=== PATIENT | male | born 1970 | race Caucasian/White ===

== ENCOUNTER 2019-12-23 13:05 | Inpatient (IN) | payer OTHER ==
[~2019-12-23] VITALS: Ht 180.3 cm; Wt 109.1 kg
[2019-12-23 13:21] VITALS: BP 109/81; Ht 180.3 cm; Wt 109.1 kg
--- NOTE | 2019-12-23 19:45 | NUR ---
REPORT RECEIVED, WILL CONT POC. PT ALERT AND ORIENTED, UP IN BED WATCHING TV. NO S/S OF DISTRESS OBSERVED. RESPIRATIONS EVEN AND UNLABORED ON ROOM AIR. PT DENIES NEEDS AT THIS TIME. CALL LIGHT IN REACH. BED LOCKED AND LOWERED. WILL CONTINUE TO MONITOR.
[2019-12-23 20:00] VITALS: BP 103/69
[2019-12-24 04:00] VITALS: BP 102/62
[2019-12-24 05:18] LABS: BASOPHILS 0 % (0-2); EOSINOPHILS 0.3 % (0-7); HEMOGLOBIN 16.6 g/dL (13.5-17.5); IMMATURE GRANULOCYTES 0.3 % (0-5); LYMPHOCYTES 34.2 % (15-50); MCH 29.2 pg (26.0-34.0); MCHC 33.9 g/dL (31.0-37.0); MCV 86.3 fL (80.0-100.0); MEAN PLATELET VOLUME 10.2 fL (7.4-10.4); MONOCYTES 7.6 % (2-11); NEUTROPHILS 57.6 % (40-80); PLATELET COUNT 122 10x3/uL (130-400); RBC 5.68 10x6/uL (4.20-6.10); RDW 13.1 % (11.5-14.5); WBC 3.8 10x3/uL (4.8-10.8)
[2019-12-24 05:53] LABS: ANION GAP 14.2 mmol/L (8-16); BILIRUBIN - TOTAL 0.51 mg/dL (0.2-1.3); CALCIUM 7.4 mg/dL (8.5-10.1); CARBON DIOXIDE 21.6 mmol/L (21.0-32.0); CREATININE - SERUM 1.3 mg/dL (0.6-1.3); POTASSIUM - SERUM 3.8 mmol/L (3.5-5.1); PROTEIN - SERUM 6.8 g/dL (6.4-8.2)
--- NOTE | 2019-12-24 08:29 | NUR ---
PT ALERT AND ORIENTED X4 UPON ENTERING, UP RIGHT IN BED EATING BREAKFAST. ADMINISTERED MEDICATION, NO DIFFICULTIES. DENIES ANY NEEDS. BED IN LOWEST POSITION, BED RAILS X2, CALL LIGHT WITHIN REACH. WILL CONTINUE TO MONITOR.
--- NOTE | 2019-12-24 08:59 | HP ---
PATIENT: PEGGY CARPENTER MEDICAL RECORD: [id number] ACCOUNT: [id number] LOCATION:D.MS [id number] : 72 ADMISSION DATE: 12/23/19 PCP: RADHA JULIEN MD HISTORY AND PHYSICAL EXAMINATION CHIEF COMPLAINT: Fatigue. HISTORY OF PRESENT ILLNESS: This is a 49-year-old white male who was working out in his yard about 6 days ago and "got overheated." Since then, he has just felt very weak and fatigued. He states he has lost 14 pounds in 6 days. He is in the process of getting a gastric sleeve placed for obesity and his stomach as "shrunk." He is having problems taking fluids and supplements. He gets very nauseated when he tries to take in fluids and electrolytes. His BMs are okay. He states his urine is "really yellow." In the office today, his blood pressure was 86/68. He did not look well. LABORATORY DATA: His hemoglobin was up to 19.0, hematocrit 53.1, and platelets down to 159,000. His BUN was elevated at 25 and creatinine 1.32. This was compared to labs done in our office 4 months ago when his hemoglobin was 16.9, hematocrit 50.0, BUN was 14, and creatinine 1.15 with his low blood pressure, feeling weak for days, unintentional weight loss and elevated creatinine, he is assigned to observation for IV fluids. PAST MEDICAL HISTORY: He has hyperlipidemia, seasonal allergies, morbid obesity, sleep apnea, but admits to not really using his machine lot now. PAST SURGICAL HISTORY: Umbilical hernia repair times 2. MEDICATIONS: Lopid 600 mg twice a day, pravastatin 40 mg once a day, and omeprazole 20 mg once a day. DRUG ALLERGIES: None known. FAMILY HISTORY: Father is alive. He has a history of coronary artery disease, lung cancer, hypertension, and an NV. The patient's mother of cancer. The patient's brother has had an NV. HABITS: No tobacco, alcohol, or drugs. REVIEW OF SYSTEMS: GENERAL: He reports 14 pound weight loss in the last week or so. HEENT: He has seasonal allergies, but nothing going on right now. RESPIRATORY: No history of emphysema or asthma. CARDIAC: No personal history of coronary artery disease. GASTROINTESTINAL: He has occasional heartburn. GENITOURINARY: No significant problems there. MUSCULOSKELETAL: No significant problems there. NEUROLOGIC: No seizures or migraine. PSYCHIATRIC: Denies depression or melancholia. PHYSICAL EXAMINATION: VITAL SIGNS: Blood pressure in my office was 86/68. In the hospital here, his blood pressure was 109/81 and temperature 99.3. GENERAL: He appears mildly ill, fatigued. SKIN: Warm and dry. HISTORY AND PHYSICAL [id number] PEGGY CARPENTER HEENT: Grossly within normal limits. NECK: Supple. No JVD or bruit. HEART: Regular rate and rhythm. LUNGS: Clear. ABDOMEN: Soft, nontender. No guarding, no rebound, no mass. EXTREMITIES: No edema. LABORATORY: Again, CBC and basic metabolic panel from my office is mentioned above. IMPRESSION: 1. Hypotension. 2. Acute dehydration. 3. Acute kidney injury. PLAN: We will admit for IV fluids. Continue his usual home medications. Recheck labs in the morning. Other tests and procedures as warranted. TRANSINT:[id number] Voice Confirmation ID: [id number] DOCUMENT ID: [id number] MARYLIN JIN MD at 0859 CC: [id number] DICTATION DATE: 12/24/19 0008 MANAGER CLIENT: 12/24/19 0400 ADM IN [facility] [address] [id number]
[2019-12-24 09:01] VITALS: BP 90/57
[2019-12-24 13:36] VITALS: BP 106/71
--- NOTE | 2019-12-24 16:40 | NUR ---
ADMINISTERED MEDICATION, NO DIFFICULTIESL. PRN TYLENOL FOR SLIGHT FEVER. RESTING COMFORTABLY IN BED. DENIES ANY NEEDS. WILL CONTINUE TO MONITOR.
[2019-12-24 18:41] VITALS: BP 94/64
[2019-12-24 22:20] VITALS: BP 106/63
[2019-12-25 05:39] LABS: BASOPHILS 0 % (0-2); EOSINOPHILS 0.3 % (0-7); HEMATOCRIT 43.5 % (42.0-54.0); HEMOGLOBIN 14.7 g/dL (13.5-17.5); IMMATURE GRANULOCYTES 0.3 % (0-5); LYMPHOCYTES 36.4 % (15-50); MCH 29.3 pg (26.0-34.0); MCHC 33.8 g/dL (31.0-37.0); MCV 86.8 fL (80.0-100.0); MEAN PLATELET VOLUME 10.9 fL (7.4-10.4); MONOCYTES 6.4 % (2-11); NEUTROPHILS 56.6 % (40-80); PLATELET COUNT 119 10x3/uL (130-400); RBC 5.01 10x6/uL (4.20-6.10); RDW 13.1 % (11.5-14.5); WBC 3.3 10x3/uL (4.8-10.8)
[2019-12-25 06:07] LABS: ANION GAP 13.1 mmol/L (8-16); CALCIUM 7.5 mg/dL (8.5-10.1); CARBON DIOXIDE 23.5 mmol/L (21.0-32.0); CREATININE - SERUM 1.2 mg/dL (0.6-1.3); POTASSIUM - SERUM 3.6 mmol/L (3.5-5.1)
[2019-12-25 08:00] VITALS: BP 100/59
[2019-12-25 12:00] VITALS: BP 98/57
[2019-12-25 13:16] LABS: BILIRUBIN NEGATIVE (NEGATIVE); GLUCOSE NEGATIVE (NEGATIVE); KETONE NEGATIVE (NEGATIVE); NITRITE NEGATIVE (NEGATIVE); UROBILINOGEN NORMAL (NORMAL)
[2019-12-25 15:32] VITALS: BP 90/55
--- NOTE | 2019-12-25 16:06 | NUR ---
PT STATES HE FEELS HE HAS A FEVER. T 102.1 TYLENOL GIVEN FOR RELIEF. WILL RECHECK IN 30 MIN
--- NOTE | 2019-12-25 16:30 | NUR ---
TEMP 100.1 STATES HE FEELS BETTER
--- NOTE | 2019-12-25 19:40 | NUR ---
LYING IN BED. DENIES PAIN. RESP EVEN AND NONLABORED. NO DISTRESS. NS @ 75 MLHR INFUSING IN LT HAND. AMBULATORY. REPORTS DIARRHEA THIS AM. ALERT AND ORIENTED X4. SR ELEVATED X2. CL IN REACH.
[2019-12-25 20:00] VITALS: BP 114/73
[2019-12-26 04:00] VITALS: BP 94/61
--- NOTE | 2019-12-26 04:43 | NUR ---
HAS RESTED WELL TONIGHT. NO DISTRESS. CL IN REACH.
[2019-12-26 05:42] LABS: BASOPHILS 0.3 % (0-2); EOSINOPHILS 0.9 % (0-7); HEMATOCRIT 41.3 % (42.0-54.0); IMMATURE GRANULOCYTES 0.3 % (0-5); LYMPHOCYTES 35.2 % (15-50); MCH 29.4 pg (26.0-34.0); MCHC 33.9 g/dL (31.0-37.0); MCV 86.8 fL (80.0-100.0); MEAN PLATELET VOLUME 10.6 fL (7.4-10.4); MONOCYTES 9.4 % (2-11); NEUTROPHILS 53.9 % (40-80); PLATELET COUNT 114 10x3/uL (130-400); RBC 4.76 10x6/uL (4.20-6.10); RDW 13.1 % (11.5-14.5); WBC 3.2 10x3/uL (4.8-10.8)
[2019-12-26 05:47] LABS: CALC OSMOLALITY 275 mosm/kg (275-300); CALCIUM 7.7 mg/dL (8.5-10.1); CARBON DIOXIDE 24.3 mmol/L (21.0-32.0); CHLORIDE - SERUM 108 mmol/L (98-107); CREATININE - SERUM 1.1 mg/dL (0.6-1.3); GLUCOSE 87 mg/dL (74-106); POTASSIUM - SERUM 3.6 mmol/L (3.5-5.1); SODIUM 139 mmol/L (136-145); eGFR NON AFRICAN AMERICAN 76 mL/min (90-120)
[2019-12-26 05:48] LABS: UREA NITROGEN 9 mg/dL (7-18)
--- NOTE | 2019-12-26 07:26 | NUR ---
ALERT AND ORIENTED. LUNGS CLEAR BILATERALLY. HEART SOUNDS S1 AND S2 HEARD IN ALL FALCON. BOWEL SOUNDS ACTIVE X 4. IV TO LEFT HAND PATENT WITHOUT REDNESS. DENIES NEEDS. SITTING IN CHAIR AT BEDSIDE. CALL GRAY AND PERSONAL ITEMS IN REACH. WILL CONTINUE TO MONITOR.
[2019-12-26 09:26] VITALS: BP 92/63
--- NOTE | 2019-12-26 12:38 | NUR ---
RESTING IN BED. DENIES NEEDS. WILL CONTINUE TO MONITOR.
[2019-12-26 12:56] VITALS: BP 112/73
--- NOTE | 2019-12-26 14:36 | NUR ---
DISCHARGE EDUCATION PROVIDED BOTH WRITTEN AND VERBAL. VERBALIZED UNDERSTANDING. DENIES FURTHER QUESTIONS. IV REMOVED FROM LEFT HAND WITH TIP INTACT. PATIENT DC HOME WITH ALL BELONGINGS.
--- NOTE | 2019-12-26 15:01 | MORECARE ---
CASE MANAGEMENT DISCHARGE SUMMARY PATIENT: PEGGY CARPENTER UNIT: [id number] ADM DATE: 12/24/19 AGE: 49 : 72 SEX: M ROOM/BED: D.2236 AUTHOR: ELICIA UMANA PHYSICIAN: REFERRING PHYSICIAN: MARYLIN JIN MD DATE OF SERVICE: 12/26/19 Discharge Plan Patient Name: PEGGY CARPENTER Facility: [facility]:[place] : 1970 Planned Disposition: Home Anticipated Discharge Date: Discharge Date: Expected LOS: Initial Reviewer: [email or web address] Initial Review Date: 12/23/2019 Generated: 12/26/19 4:00 pm Comments DCP- Discharge Planning Updated by [email or web address]: Vera Palencia on 12/26/19 1:[address] Patient Name: PEGGY CARPENTER Admission Status: Elective Accout number: [id number] Admission Date: 12-24-2019 : 1970 Admission Diagnosis:HYPOTENSION, UNSPECIFIED Attending: MARYLIN JIN Current LOS: 2 Anticipated DC Date: Planned Disposition: Home Primary Insurance: [employer] POS Discharge Planning Comments: CM met with patient to complete initial dc planning assessment. CM educated patient on the CM role and verbal consent given by patient to complete assessment. Patient lives at home with family. Patient is independent. At discharge patient plans to return home and feels this is a safe discharge. CM discussed availability of home health, rehab services, and medical equipment. Patient denied known discharge needs at this time. CM will continue to follow and will assist as needed. Tie Knitter Helper: Vera Palencia Patient Name: PEGGY CARPENTER Page [id number] at 1501 All edits/amendments must be made on the electronic document DICTATION DATE: 12/26/19 1500 TOP SPOTTER: ALICE 12/26/19 1500 RPT#: [id number] DC DATE: STATUS: ADM IN [facility] [address] [place] [address] END OF REPORT
--- NOTE | 2019-12-29 08:37 | MORECARE ---
CASE MANAGEMENT DISCHARGE SUMMARY PATIENT: PEGGY CARPENTER UNIT: [id number] ADM DATE: 12/24/19 AGE: 49 : 72 SEX: M ROOM/BED: D.2236 AUTHOR: ELICIA UMANA PHYSICIAN: REFERRING PHYSICIAN: MARYLIN JIN MD DATE OF SERVICE: 12/29/19 Discharge Plan Patient Name: PEGGY CARPENTER Facility: [facility]:[place] : 1970 Planned Disposition: Home Anticipated Discharge Date: Discharge Date: 12/26/2019 Expected LOS: Initial Reviewer: [email or web address] Initial Review Date: 12/23/2019 Generated: 12/29/19 9:37 am Comments DCP- Discharge Planning Updated by [id number]: Vera Palencia on 12/26/19 1:[address] Patient Name: PEGGY CARPENTER Admission Status: Elective Accout number: [id number] Admission Date: 12-24-2019 : 1970 Admission Diagnosis:HYPOTENSION, UNSPECIFIED Attending: MARYLIN JIN Current LOS: 2 Anticipated DC Date: Planned Disposition: Home Primary Insurance: [email or web address] POS Discharge Planning Comments: CM met with patient to complete initial dc planning assessment. CM educated patient on the CM role and verbal consent given by patient to complete assessment. Patient lives at home with family. Patient is independent. At discharge patient plans to return home and feels this is a safe discharge. CM discussed availability of home health, rehab services, and medical equipment. Patient denied known discharge needs at this time. CM will continue to follow and will assist as needed. Manager Parking: Vera Burdick DP export: 12/26/19 2:01 p Patient Name: PEGGY CARPENTER Page [phone] at 0837 All edits/amendments must be made on the electronic document DICTATION DATE: 12/29/1937 MOBILE DEVICE DEVELOPER: ALICE 12/29/1937 RPT#: [id number] DC DATE:12/26/19 STATUS: DIS IN [address] [place] [address] END OF REPORT
[2019-12-29 14:09] LABS: EHRLICHIA CHAFF IGG Negative (Neg:<1:64); EHRLICHIA CHAFF IGM Negative (Neg:<1:20); HGE IGG TITER Negative (Neg:<1:64); HGE IGM TITER Negative (Neg:<1:20)
[2019-12-30 16:09] LABS: F. TULARENSIS - IGG Negative (Negative); F. TULARENSIS - IGM Negative (Negative)
== END 2019-12-26 15:21 | disposition home or self-care (01) | DRG 682 ==
LOC: D.MS 13:05 → EDSEX 13:07 → D.MS 13:07 → OBSVTIME 13:07 → D.MS 12-24 17:03
PROVIDERS: Family Medicine; ADMIT Family Medicine; ATTEND Family Medicine
DX: N17.9 Acute kidney failure, unspecified (principal); J12.9 Viral pneumonia, unspecified; E86.0 Dehydration; I95.9 Hypotension, unspecified; E78.5 Hyperlipidemia, unspecified; R63.4 Abnormal weight loss; R53.83 Other fatigue; X30.XXXA Exposure to excessive natural heat, initial encounter; D70.9 Neutropenia, unspecified; D69.6 Thrombocytopenia, unspecified

== ENCOUNTER 2019-12-28 11:19 | Inpatient (IN) | payer OTHER ==
[~2019-12-28] VITALS: Ht 180.3 cm; Wt 110.2 kg
[2019-12-28 12:10] LABS: BASOPHILS 0.4 % (0-2); EOSINOPHILS 1.5 % (0-7); HEMATOCRIT 47.4 % (42.0-54.0); HEMOGLOBIN 16.2 g/dL (13.5-17.5); IMMATURE GRANULOCYTES 0.7 % (0-5); LYMPHOCYTES 23.2 % (15-50); MCH 29.1 pg (26.0-34.0); MCHC 34.2 g/dL (31.0-37.0); MCV 85.1 fL (80.0-100.0); MEAN PLATELET VOLUME 10.3 fL (7.4-10.4); MONOCYTES 11.3 % (2-11); NEUTROPHILS 62.9 % (40-80); RBC 5.57 10x6/uL (4.20-6.10); RDW 12.6 % (11.5-14.5); WBC 5.4 10x3/uL (4.8-10.8)
[2019-12-28 12:11] LABS: PLATELET COUNT 214 10x3/uL (130-400)
[2019-12-28 12:21] LABS: CALC OSMOLALITY 280 mosm/kg (275-300); CALCIUM 8.6 mg/dL (8.5-10.1); CARBON DIOXIDE 23.7 mmol/L (21.0-32.0); CHLORIDE - SERUM 103 mmol/L (98-107); CREATININE - SERUM 1.1 mg/dL (0.6-1.3); GLUCOSE 101 mg/dL (74-106); POTASSIUM - SERUM 4.2 mmol/L (3.5-5.1); SODIUM 141 mmol/L (136-145); UREA NITROGEN 13 mg/dL (7-18); eGFR NON AFRICAN AMERICAN 76 mL/min (90-120)
[2019-12-28 12:37] LABS: ALBUMIN 3.1 g/dL (3.4-5.0); ALKALINE PHOSPHATASE 101 U/L (30-120); ALT (SGPT) 58 U/L (10-68); BILIRUBIN - TOTAL 1.34 mg/dL (0.2-1.3); CKMB 0.8 U/L (0.0-3.6); CREATINE KINASE 81 UL (21-232); PROTEIN - SERUM 6.9 g/dL (6.4-8.2)
[2019-12-28 12:38] LABS: TROPONIN-I < 0.017 ng/mL (0.000-0.060)
[2019-12-28 13:44] LABS: BILIRUBIN NEGATIVE (NEGATIVE); GLUCOSE NEGATIVE (NEGATIVE); KETONE LARGE mg/dL (NEGATIVE); NITRITE NEGATIVE (NEGATIVE); UROBILINOGEN 4 mg/dL (NORMAL)
[2019-12-28 13:45] LABS: BACTERIA MANY /hpf (NEGATIVE); RED CELLS - URINE 0-5 /hpf (0-5); WHITE CELLS - URINE 0-5 /hpf (NEGATIVE)
[2019-12-28 13:46] LABS: AMORPHOUS SEDIMENT <1+ /lpf (NONE SEEN); HYALINE CAST 0-5 /lpf (NONE SEEN)
--- NOTE | 2019-12-28 20:00 | NUR ---
INFORMED PATIENT THAT HE WAS COVID +, INFORMED ME THAT HIS TESTED + LAST WEEK.
[2019-12-28 20:16] VITALS: BP 129/82
[2019-12-29 02:21] VITALS: BP 125/85; Ht 180.3 cm; Wt 110.2 kg
[2019-12-29 04:30] VITALS: BP 136/88
[2019-12-29 05:43] LABS: BASOPHILS 0.6 % (0-2); EOSINOPHILS 0 % (0-7); HEMATOCRIT 44.2 % (42.0-54.0); IMMATURE GRANULOCYTES 1.5 % (0-5); LYMPHOCYTES 24.2 % (15-50); MCH 28.7 pg (26.0-34.0); MCHC 33.9 g/dL (31.0-37.0); MCV 84.5 fL (80.0-100.0); MONOCYTES 5.5 % (2-11); NEUTROPHILS 68.2 % (40-80); PLATELET COUNT 243 10x3/uL (130-400); RBC 5.23 10x6/uL (4.20-6.10); RDW 12.5 % (11.5-14.5)
[2019-12-29 05:56] LABS: WBC 3.3 10x3/uL (4.8-10.8)
[2019-12-29 06:25] LABS: ALBUMIN 2.5 g/dL (3.4-5.0); ALKALINE PHOSPHATASE 92 U/L (30-120); ALT (SGPT) 51 U/L (10-68); AMYLASE - SERUM 71 U/L (25-115); BILIRUBIN - DIRECT 0.29 mg/dL (0.00-0.30); BILIRUBIN - INDIRECT 0.36 mg/dL (0.00-1.00); BILIRUBIN - TOTAL 0.65 mg/dL (0.2-1.3); CALC OSMOLALITY 274 mosm/kg (275-300); CALCIUM 8.7 mg/dL (8.5-10.1); CARBON DIOXIDE 20.9 mmol/L (21.0-32.0); CHLORIDE - SERUM 104 mmol/L (98-107); CREATININE - SERUM 0.9 mg/dL (0.6-1.3); GLUCOSE 126 mg/dL (74-106); LIPASE 347 U/L (73-393); PROTEIN - SERUM 6.9 g/dL (6.4-8.2); SODIUM 136 mmol/L (136-145); UREA NITROGEN 16 mg/dL (7-18); eGFR NON AFRICAN AMERICAN > 90 mL/min (90-120)
[2019-12-29 11:30] VITALS: BP 116/73
--- NOTE | 2019-12-29 19:00 | NUR ---
EVENING ROUNDS COMPLETE. PT LAYING IN BED. NO SINGS OF DISTRESS. AAOX4. PT DENIES ANY PAIN OR NEEDS AT THIS TIME. CL IN REACH, BED IN LOWEST POSITION.
[2019-12-29 20:00] VITALS: BP 136/91
--- NOTE | 2019-12-30 01:40 | NUR ---
PT ORDER FOR TELEMETRY. NO TELEMETRY AVAILABLE PER WINDOWS SYSTEMS ADMINISTRATOR.
[2019-12-30 04:00] VITALS: BP 124/90
--- NOTE | 2019-12-30 07:46 | HP ---
PATIENT: PEGGY CARPENTER MEDICAL RECORD: [id number] ACCOUNT: [id number] LOCATION:[address] : [birth year] ADMISSION DATE: 12/28/19 PCP: RADHA JULIEN MD HISTORY AND PHYSICAL EXAMINATION REASON FOR ADMISSION: Nausea, abdominal discomfort, and fever. HISTORY OF PRESENT ILLNESS: The patient is a 49-year-old male who was hospitalized for GI symptoms, mild intravascular volume depletion, and viral pneumonia last week. He was discharged on 12/26/2019 on no antibiotics and his cultures were negative. He was satting 98% range. He said when he got home, his appetite fell off again as it has been good in the hospital. His temperature is 100 to 101. He just felt worse. His urine looked dark or so, he came back to the ED. He denies chest pain and minimal cough. He has normal taste and smell. He has had no diarrhea. In the ED, he was afebrile. Blood gas showed a pCO2 of 30, O2 of 71 on room air. Lactic acid was 0.6. Chest x-ray was repeated now showing bilateral lower lobe airspace disease compatible with pneumonia. His white blood count which has been low had normalized to 5400 range with normal differential. ER physician felt he should be readmitted for Covid rule out and IV antibiotics empirically. The patient again has no loss of sense of taste or smell. He is not short of breath. PAST MEDICAL HISTORY: Recent viremia and viral pneumonia and neutropenia, hyperlipidemia, seasonal allergies, morbid obesity, MARILEE, and noncompliance. PAST SURGICAL HISTORY: Umbilical hernia repair times 2. HOME MEDICATIONS: Pravastatin 40 mg at bedtime, Zofran 4 mg q.4 hours p.r.n. nausea, Lopid 600 mg p.o. b.i.d., and omeprazole 20 mg a day. ALLERGIES: None known. FAMILY HISTORY: Father is a vasculopath and previous CABG, peripheral vascular disease. He has COPD and smoker, had lung cancer. His mother of cancer. Brother had an MD at an early age. SOCIAL HISTORY: Nonsmoker, nondrinker, does not use illicit drugs. He is , has 1 child. REVIEW OF SYSTEMS: GENERAL: He has had general malaise for over a week and he felt he had heat prostration. He has had low-grade fever not over 101. Denies headache. HEENT: No recent visual change, sinus congestion, or sore throat. RESPIRATORY: Not really short of breath, unless he really exerts himself. He denies cough, sputum production, hemoptysis. He denies loss of taste, sense of smell. GASTROINTESTINAL: Nausea without vomiting. No change in stools or blood. He states he really had not had a bowel movement in 2 days. GENITOURINARY: No dysuria or nocturia. MUSCULOSKELETAL: Has generalized arthralgias in lumbar spine, no sciatica. INTEGUMENT: No rash or itching. HEART: No exertional chest pain, claudication, or edema. NEUROLOGIC: Denies loss of sense of taste or smell.. No motor or sensory deficits and no tingling or numbness. PSYCHIATRIC: Denies depress mood. HISTORY AND PHYSICAL [id number] PEGGY CARPENTER PHYSICAL EXAMINATION: GENERAL: A 49-year-old male in no acute distress, but appears fatigued. VITAL SIGNS: Show temperature 97.3 Fahrenheit orally, pulse of 80, respirations of 20, blood pressure is 130/80 with sat 98% on room air. GENERAL: The patient is alert and oriented. HEENT: Eyes are clear and nonicteric. Oropharynx dry mucous membranes. NECK: Supple. CHEST: Fine crackles in both bases. No E to A change. No wheezing. He is not tachypneic. HEART: Regular without murmur. ABDOMEN: Soft, nontender throughout. Bowel sounds are active. GENITOURINARY: Unremarkable. EXTREMITIES: No CC&E. Motor and sensory is intact. Smell and taste are intact. LABORATORY DATA: Shows a white count 5400 with normal diff, H and H is 16 and 47.4 respectively. BMP is normal except for anion gap of 18.5, CO2 of 23.7, bilirubin is 1.34, and AST is 48. C-reactive protein is 4.2. Lactic acid is 1.9 in the normal range. Blood gas on room air showed pH of 7.41, pCO2 of 30, O2 of 71 on room air. Urinalysis, large ketones, many bacteria. Covid test is pending. ASSESSMENT: 1. Bilateral pneumonia appears viral, but he is not improved outpatient. 2. Nausea with clinical dehydration. 3. Elevated liver functions, etiology unknown. 4. Bacteriuria. 5. Hyperlipidemia. PLAN: The patient has been cultured and admitted. Covid test is pending. He will be Covid rule out for this time being, we will hold updrafts. He is not wheezing. He will placed on Rocephin and Zithromax empirically. Urine and blood cultures. TRANSINT:[id number] Voice Confirmation ID: [id number] DOCUMENT ID: [id number] RADHA JULIEN MD at 0746 CC: [id number] DICTATION DATE: 12/28/19 1601 CLINICAL ACCOUNT SPECIALIST: 12/28/192006 ADM IN [facility] [address] [place] [address]
[2019-12-30 08:38] VITALS: BP 137/90
[2019-12-30 09:12] LABS: HEPATITIS C ANTIBODY <0.1 S/CO RAT (0.0-0.9)
[2019-12-30 13:05] VITALS: BP 118/73
--- NOTE | 2019-12-30 17:02 | NUR ---
I have reviewed this patient and I concur with the Shift Assessment completed by the Licensed Practical Nurse today this shift.
--- NOTE | 2019-12-30 19:00 | NUR ---
REPORT RECEIVED, WILL CONTINUE POC. PATIENT IS AAXO4, SITTING UP IN BED. NO S/S OF DISTRESS OBSERVED, RR EVEN AND UNLABORED ON ROOM AIR. PATIENT DENIES NEEDS AT THIS TIME. CL IN REACH, BED LOCKED AND LOWERED. COVID PRECAUTIONS MAINTAINED. WILL CTM.
[2019-12-30 20:00] VITALS: BP 127/85
[2019-12-31] VITALS: BP 123/73
[2019-12-31 04:00] VITALS: BP 138/88
[2019-12-31 06:29] LABS: BASOPHILS 0.3 % (0-2); EOSINOPHILS 0.2 % (0-7); HEMATOCRIT 42.2 % (42.0-54.0); HEMOGLOBIN 14.5 g/dL (13.5-17.5); IMMATURE GRANULOCYTES 6.2 % (0-5); LYMPHOCYTES 27.4 % (15-50); MCH 29.1 pg (26.0-34.0); MCHC 34.4 g/dL (31.0-37.0); MCV 84.6 fL (80.0-100.0); MEAN PLATELET VOLUME 10.5 fL (7.4-10.4); MONOCYTES 9.4 % (2-11); NEUTROPHILS 56.5 % (40-80); RBC 4.99 10x6/uL (4.20-6.10); RDW 12.7 % (11.5-14.5)
[2019-12-31 06:42] LABS: PLATELET COUNT 294 10x3/uL (130-400); WBC 6.2 10x3/uL (4.8-10.8)
[2019-12-31 06:44] LABS: CALC OSMOLALITY 279 mosm/kg (275-300); CARBON DIOXIDE 24.5 mmol/L (21.0-32.0); CHLORIDE - SERUM 109 mmol/L (98-107); CREATININE - SERUM 0.7 mg/dL (0.6-1.3); GLUCOSE 104 mg/dL (74-106); POTASSIUM - SERUM 3.7 mmol/L (3.5-5.1); SODIUM 140 mmol/L (136-145); UREA NITROGEN 15 mg/dL (7-18); eGFR NON AFRICAN AMERICAN > 90 mL/min (90-120)
[2019-12-31 11:10] VITALS: BP 142/94
[2019-12-31 16:47] VITALS: BP 129/89
--- NOTE | 2019-12-31 19:00 | NUR ---
REPORT RECEIVED, WILL CONTINUE POC. PATIENT IS AAXO4, SITTING UP IN BED. NO S/S OF DISTRESS OBSERVED, RR EVEN AND UNLABORED ON ROOM AIR. PATIENT DENIES NEEDS AT THIS TIME. CL IN REACH, BED LOCKED AND LOWERED. WILL CTM.
[2019-12-31 20:00] VITALS: BP 130/93
[2020-01-01 04:00] VITALS: BP 131/90
[2020-01-01] MEDS ORDERED: DECADRON4 MG PO (12:56)
[2020-01-01] MEDS ORDERED: PULMICORT FLEXHALER INH (12:57)
[2020-01-01] MEDS ORDERED: ZITHROMAX250 MG PO (12:58)
--- NOTE | 2020-01-01 13:25 | NUR ---
I have reviewed this patient and I concur with the Shift Assessment completed by the Licensed Practical Nurse today this shift.
--- NOTE | 2020-01-01 15:00 | NUR ---
D/C INSTURCTIONS REVIEWED WITH PT. VERBALIZED UNDERSTANDING. IV D/C WITH CATHETER TIP INTACT. LEFT VIA AMBULATION AND REFUSED W/C
== END 2020-01-01 18:04 | disposition home or self-care (01) | DRG 177 ==
LOC: D.ER 11:19 → D.M2 18:55
PROVIDERS: Family Medicine; ADMIT Family Medicine; ATTEND Family Medicine
DX: U07.1 COVID-19 (principal); J12.89 Other viral pneumonia; E78.5 Hyperlipidemia, unspecified; E86.0 Dehydration; R79.82 Elevated C-reactive protein (CRP); E66.01 Morbid (severe) obesity due to excess calories; Z68.33 Body mass index [BMI] 33.0-33.9, adult; R82.71 Bacteriuria; J30.9 Allergic rhinitis, unspecified